=== PATIENT | female | born 1975 | race Caucasian/White ===

== ENCOUNTER → 2016-05-26 | Day surgery (SDC) | payer OTHER ==
[~2016-05-26] VITALS: Ht 162.6 cm; Wt 93.2 kg
[~2016-05-26] MED LIST: AMIT50TA3 PO; CLON0.5T3 PO; CYCL10TA6 PO; DPPI400 IM; HYDR-4330 PO; LIDOCAINE HCL 2% 2 ML VIAL (20MG/ML) ONE; MIDAZOLAM HCL 1 MG/ML 2ML VIAL ONE; OMEP40CA PO; ONDANSETRON INJ 2 MG/ML 2 ML VIAL ONE; PROPOFOL IV EMULSION 10 MG/ML 20 ML VIAL IV ONE; RANI300T2 PO; VALA1TAB PO
[2016-05-26 08:28] VITALS: Ht 162.6 cm; Wt 93.2 kg
--- NOTE | 2016-05-26 08:35 | Endo History and Physical ---
History & Physical Date of Service: May 26, 2016. Chief Complaint: DYSPHAGIA, REFLUX Referring Physician: DR COOPER History of Present Illness 41 yo CF who presents for EGD secondary to GERD and Dysphagia. Past Surgical History Hx Cardiac Surgery: No Hx Internal Defibrillator: No Hx Pacemaker: No Hx Abdominal Surgery: No Hx of Implantable Prosthesis: No Hx Post-Op Nausea and Vomiting: Yes (NO ISSUES WITH PREVIOUS EGD) Hx Cancer Surgery: No Hx Thoracic Surgery: No Hx Orthopedic: Yes (LUMBAR DISCECTOMY, LAMINECTOMY, R/L CTR) Hx Urinary Tract Surgery: No Family History None Social History Smoking Status: Never Smoker Hx Substance Use: No Hx Alcohol Use: Yes (RARE) Allergies Coded Allergies: Acetaminophen (Verified Allergy, Mild, ITCHY, 05/07/16) Codeine (Verified Allergy, Mild, SWELLING OF MOUTH AND ITCHY,, 05/07/16) Hydrocodone (Verified Allergy, Mild, ITCHY, 05/07/16) Current Medications Reported Home Medications Medications Dose Route/Sig Max Daily Dose Days Date Category Dose Instructions Klonopin (Clonazepam) 0.5 Mg Tab 0.5 Mg PO UD PRN 05/07/16 Reported Amitriptyline Hcl 50 Mg Tab 25 Mg PO HS 05/07/16 Reported Flexeril (Cyclobenzaprine Hcl) 10 Mg Tab 10 Mg PO TID PRN 01/01/16 Reported Lortab 5-325 mg (Hydrocodone-Acetaminophen) 1 Tab Tab 1 Tab PO QID PRN 01/01/16 Reported STILL TAKES EVEN THOUGH SHE HAS ADVERSE REACTION - ITCHING Depo-Provera (Medroxyprogesterone Acetate) 400 Mg/Ml Inj 1 Dose IM EVERY 3 MONTHS 01/01/16 Reported Valtrex (Valacyclovir HCl) 1,000 Mg Tab 1,000 Mg PO TID PRN 01/01/16 Reported Prilosec (Omeprazole) 40 Mg Capcr 40 Mg PO QAM 01/01/16 Reported Zantac (Ranitidine HCl) 300 Mg Tab 300 Mg PO HS 01/01/16 Reported Vital Signs Weight (Kilograms): 93.18 Height (Feet): 5 Height (Inches): 4 Date Time Temp Pulse Resp B/P Pulse Ox O2 Delivery O2 Flow Rate FiO2 05/26/16 08:26 36.3 97 18 160/94 92 Room Air Physical Exam General Appearance: WD/WN, no apparent distress Respiratory/Chest: Auscultation: breath sounds normal Cardiovascular: Heart Auscultation: RRR Abdomen: Bowel Sounds: normal Inspection & Palpation: soft, non-distended, no tenderness, guarding & rebound Assessment and Plan Assessment: 41 yo CF who presents for EGD secondary to GERD and Dysphagia. Plan: Proceed with EGD.
--- NOTE | 2016-05-26 09:34 | GI REPORT ---
Procedure Date: 05/26/2016 9:06 AM Procedure: Upper GI endoscopy Indications: Dysphagia, Gastro-esophageal reflux disease Medicines: Monitored Anesthesia Care Complications: No immediate complications. Estimated Blood Loss: Estimated blood loss: none. Procedure: Pre-Anesthesia Assessment: - Prior to the procedure, a History and Physical was performed, and patient medications and allergies were reviewed. The patient's tolerance of previous anesthesia was also reviewed. The risks and benefits of the procedure and the sedation options and risks were discussed with the patient. All questions were answered, and informed consent was obtained. Prior Anticoagulants: The patient has taken no previous anticoagulant or antiplatelet agents. ASA Grade Assessment: II - A patient with mild systemic disease. After reviewing the risks and benefits, the patient was deemed in satisfactory condition to undergo the procedure. After obtaining informed consent, the endoscope was passed under direct vision. Throughout the procedure, the patient's blood pressure, pulse, and oxygen saturations were monitored continuously. The scope was introduced through the mouth, and advanced to the second part of duodenum. The upper GI endoscopy was accomplished without difficulty. The patient tolerated the procedure well. Findings: One mild benign-appearing, intrinsic stenosis was found. This measured 1.5 cm (inner diameter) x less than one cm (in length) and was traversed. A guidewire was placed and the scope was withdrawn. Dilation was performed with a Savary dilator with no resistance at 48 Fr and 51 Fr. A TTS dilator was passed through the scope. Dilation with an 18-19-20 mm balloon (to a maximum balloon size of 20 mm) dilator was performed. The dilation site was examined following endoscope reinsertion and showed no change. A small hiatus hernia was present. The examined duodenum was normal. Impression: - Benign-appearing esophageal stenosis. Dilated. - Small hiatus hernia. - Normal examined duodenum. - No specimens collected. Recommendation: - Resume previous diet. - Continue present medications. - Repeat the upper endoscopy PRN for retreatment. - Return to primary care physician as previously scheduled. Bridger Navarro DO 05/26/2016 9:33:19 AM This report has been signed electronically. Note Initiated On: 05/26/2016 9:06 AM
--- NOTE | 2016-05-26 09:38 | Discharge Instructions ---
Endoscopy Patient Instructions Date / Procedure(s) Performed May 26, 2016. EGD Allergy Information Coded Allergies: Acetaminophen (Verified Allergy, Mild, ITCHY, 05/07/16) Codeine (Verified Allergy, Mild, SWELLING OF MOUTH AND ITCHY,, 05/07/16) Hydrocodone (Verified Allergy, Mild, ITCHY, 05/07/16) Discharge Date / Findings May 26, 2016. Esophageal stricture s/p dilation Hiatal hernia Medication Instructions OK to resume all medications today as prescribed Reported Home Medications Medications Dose Route/Sig Max Daily Dose Days Date Category Dose Instructions Klonopin (Clonazepam) 0.5 Mg Tab 0.5 Mg PO UD PRN 05/07/16 Reported Amitriptyline Hcl 50 Mg Tab 25 Mg PO HS 05/07/16 Reported Flexeril (Cyclobenzaprine Hcl) 10 Mg Tab 10 Mg PO TID PRN 01/01/16 Reported Lortab 5-325 mg (Hydrocodone-Acetaminophen) 1 Tab Tab 1 Tab PO QID PRN 01/01/16 Reported STILL TAKES EVEN THOUGH SHE HAS ADVERSE REACTION - ITCHING Depo-Provera (Medroxyprogesterone Acetate) 400 Mg/Ml Inj 1 Dose IM EVERY 3 MONTHS 01/01/16 Reported Valtrex (Valacyclovir HCl) 1,000 Mg Tab 1,000 Mg PO TID PRN 01/01/16 Reported Prilosec (Omeprazole) 40 Mg Capcr 40 Mg PO QAM 01/01/16 Reported Zantac (Ranitidine HCl) 300 Mg Tab 300 Mg PO HS 01/01/16 Reported Provider Instructions Activity Restrictions - No exercising or heavy lifting for 24 hours. - Do not drink alcohol the day of the procedure. - Do not drive a car or operate machinery until the day after the procedure. - Do not make any important decisions or sign important papers in 24 hours after the procedure. Following Day: - Return to full activity which may include returning to work/school. Diet Start your diet with liquids and light foods (jello, soup, juice, toast). Then eat your usual diet if not nauseated. Treatment For Common After Affects For mild abdominal pain, bloating, or excessive gas: - Rest - Eat lightly - Lie on right side Follow-Up Information Follow-up with DR COOPER as scheduled Anesthesia Information What You Should Know You have had a procedure that required some medicine to reduce anxiety and discomfort. This treatment is called moderate sedation. After receiving the treatment, you may be sleepy, but you will be able to breathe on your own. The effects of the treatment may last for several hours. Follow these instructions along with Activity/Diet recommendations noted above: * Do NOT do anything where dizziness or clumsiness would be dangerous. * Rest quietly at home today, then you can be up and about tomorrow. * Have a responsible person stay with you the rest of today. * You may have had an I.V. today. If so, you may take the dressing off later today. Recommendations Call your doctor if: * Trouble breathing * Continuous vomiting for more than 24 hours * Temperature above 101 degrees * Severe abdominal pain or bloating * Pain not relieved by pain medicine ordered * There is increased drainage or redness from any incision * A large amount of rectal bleeding greater than 2-3 tablespoons. (If you had a polyp/s removed or have hemorrhoids, a small amount of blood - from the rectum is to be expected.) * You have any unanswered questions or concerns. IN THE EVENT OF A SERIOUS EMERGENCY, GO TO THE NEAREST EMERGENCY ROOM Your discharge instructions were prepared by provider Bridger Navarro. Patient Instructions Signature Page Elysia Mckeon Patient (or Guardian) Signature/Date: I have read and understand the instructions given to me by my caregivers. Caregiver/RN/Doctor Signature/Date: The above-named patient and/or guardian has received patient instructions on this date. + Original Patient Signature Page (only) stays with chart. Please make copy for patient.
[2016-05-26 10:21] VITALS: BP 137/81; PULSE 82; O2SAT 97
--- NOTE | 2016-05-26 10:40 | Anesthesiology Progress Note ---
Anesthesia Post Op Note Date & Time May 26, 2016 at 10:39 Vital Signs Pain Intensity: 0 Vital Signs Past 12 Hours Date Time Temp Pulse Resp B/P Pulse Ox O2 Delivery O2 Flow Rate FiO2 05/26/16 10:21 82 18 137/81 97 Room Air 05/26/16 09:53 85 18 141/67 99 Room Air 05/26/16 09:38 95 18 137/67 96 Room Air 05/26/16 09:23 100 18 122/59 98 Room Air 05/26/16 08:26 36.3 97 18 160/94 92 Room Air Notes Mental Status: alert / awake / arousable Nausea / Vomiting: adequately controlled Pain: adequately controlled Airway Patency, RR, SpO2: stable & adequate BP & HR: stable & adequate Hydration State: stable & adequate Anesthetic Complications: no major complications apparent
== END | disposition home or self-care (01) ==
LOC: C.GI 08:04
PROVIDERS: ATTEND Internal Medicine
DX: K21.9 Gastro-esophageal reflux disease without esophagitis (principal); R13.10 Dysphagia, unspecified; K22.2 Esophageal obstruction; Z88.6 Allergy status to analgesic agent; Z88.5 Allergy status to narcotic agent; J45.909 Unspecified asthma, uncomplicated; K44.9 Diaphragmatic hernia without obstruction or gangrene

== ENCOUNTER → 2017-05-14 | Day surgery (SDC) | payer OTHER ==
[2017-05-04 08:39] VITALS: Ht 162.6 cm; Wt 104.5 kg
[~2017-05-14] VITALS: Ht 162.6 cm; Wt 104.5 kg
[~2017-05-14] MED LIST changes: -CLON0.5T3 PO; -HYDR-4330 PO; +HYDR-5688 PO; +KLN/5 PO; -MIDAZOLAM HCL 1 MG/ML 2ML VIAL ONE; +NXM/40 PO; -OMEP40CA PO; -ONDANSETRON INJ 2 MG/ML 2 ML VIAL ONE; +SODIUM CHLORIDE 0.9% 500ML 500 ML IV ONE; -VALA1TAB PO; +VALA1TAB31 PO; +VITAMIN D PO
--- NOTE | 2017-05-14 09:01 | Endo History and Physical ---
History & Physical Date of Service: May 14, 2017. Chief Complaint: esophageal stenosis, vomiting, gerd Referring Physician: Dr. wIona Garcia History of Present Illness 42 yo CF who presents for EGD secondary to esophageal stenosis, vomiting and GERD. Past Surgical History Hx Cardiac Surgery: No Hx Internal Defibrillator: No Hx Pacemaker: No Hx Abdominal Surgery: No Hx Post-Op Nausea and Vomiting: Yes Hx Cancer Surgery: No Hx Thoracic Surgery: No Hx Orthopedic: Yes (LUMBAR DISCECTOMY, LAMINECTOMY, R/L CTR) Hx Urinary Tract Surgery: No Family History None Social History Smoking Status: Never Smoker Hx Substance Use: No Hx Alcohol Use: Yes (RARE) Allergies Coded Allergies: Dextromethorphan (Verified Allergy, Unknown, WITH CODEINE, ITCHING/THROAT CLOSED, 05/04/17) Guaifenesin (Verified Allergy, Unknown, WITH CODEINE, ITCHING/THROAT CLOSED, 05/04/17) Current Medications Reported Home Medications Medications Dose Route/Sig Max Daily Dose Days Date Category Dose Instructions [Vitamin D] 1 Tab PO WK 05/04/17 Reported Valtrex (Valacyclovir Hcl) 1 Gm Tab 1 Gm PO TID PRN 05/04/17 Reported Nexium (Esomeprazole Magnesium) 40 Mg Cap 40 Mg PO QAM 05/04/17 Reported [place] 5MG/325MG (Acetaminophen/Hydrocodone Bitart) Tab 1 Tablet PO Q6H PRN 05/04/17 Reported PRN PAIN Amitriptyline Hcl 50 Mg Tab 50 Mg PO HS 05/04/17 Reported Klonopin (Clonazepam) 0.5 Mg Tab 0.5 Mg PO UD PRN 05/07/16 Reported Flexeril (Cyclobenzaprine Hcl) 10 Mg Tab 10 Mg PO TID PRN 01/01/16 Reported Depo-Provera (Medroxyprogesterone Acetate) 400 Mg/Ml Inj 1 Dose IM EVERY 3 MONTHS 01/01/16 Reported Zantac (Ranitidine HCl) 300 Mg Tab 300 Mg PO HS 01/01/16 Reported Vital Signs Weight (Kilograms): 104.55 Height (Feet): 5 Height (Inches): 4 Date Time Temp Pulse Resp B/P (MAP) Pulse Ox O2 Delivery O2 Flow Rate FiO2 05/14/17 08:37 36.7 93 22 138/94 (109) 98 Room Air Physical Exam General Appearance: WD/WN, no apparent distress Respiratory/Chest: Auscultation: breath sounds normal Cardiovascular: Heart Auscultation: RRR Abdomen: Bowel Sounds: normal Inspection & Palpation: soft, non-distended, no tenderness, guarding & rebound Assessment and Plan Assessment: 42 yo CF who presents for EGD secondary to esophageal stenosis, vomiting and GERD. Plan: Proceed with EGD.
--- NOTE | 2017-05-14 09:31 | GI REPORT ---
Procedure Date: 05/14/2017 9:05 AM Procedure: Upper GI endoscopy Indications: Gastro-esophageal reflux disease, For therapy of esophageal stenosis Medicines: Monitored Anesthesia Care Complications: No immediate complications. Estimated Blood Loss: Estimated blood loss: none. Procedure: Pre-Anesthesia Assessment: - Prior to the procedure, a History and Physical was performed, and patient medications and allergies were reviewed. The patient's tolerance of previous anesthesia was also reviewed. The risks and benefits of the procedure and the sedation options and risks were discussed with the patient. All questions were answered, and informed consent was obtained. Prior Anticoagulants: The patient has taken no previous anticoagulant or antiplatelet agents. ASA Grade Assessment: II - A patient with mild systemic disease. After reviewing the risks and benefits, the patient was deemed in satisfactory condition to undergo the procedure. After obtaining informed consent, the endoscope was passed under direct vision. Throughout the procedure, the patient's blood pressure, pulse, and oxygen saturations were monitored continuously. The scope was introduced through the mouth, and advanced to the second part of duodenum. The upper GI endoscopy was accomplished without difficulty. The patient tolerated the procedure well. Findings: One mild benign-appearing, intrinsic stenosis was found. This measured less than one cm (in length) and was traversed. A TTS dilator was passed through the scope. Dilation with an 18-19-20 mm balloon (to a maximum balloon size of 20 mm) dilator was performed. The dilation site was examined and showed no change. Estimated blood loss was minimal. A medium-sized hiatus hernia was present. The examined duodenum was normal. Impression: - Benign-appearing esophageal stenosis. Dilated. - Medium-sized hiatus hernia. - Normal examined duodenum. - No specimens collected. Recommendation: - Resume previous diet. - Continue present medications. - Return to primary care physician as previously scheduled. Bridger Navarro, DO 05/14/2017 9:30:21 AM This report has been signed electronically. Note Initiated On: 05/14/2017 9:05 AM I attest to the content of the Intraoperative Record and orders documented therein, exceptions below
--- NOTE | 2017-05-14 09:59 | Anesthesiology Progress Note ---
Anesthesia Post Op Note Date & Time May 14, 2017 at 09:59 Vital Signs Pain Intensity: 0 Vital Signs Past 12 Hours Date Time Temp Pulse Resp B/P (MAP) Pulse Ox O2 Delivery O2 Flow Rate FiO2 05/14/17 09:45 90 20 122/70 (87) 99 Room Air 05/14/17 09:30 98 20 112/59 (76) 98 Room Air 05/14/17 08:37 36.7 93 22 138/94 (109) 98 Room Air Notes Mental Status: alert / awake / arousable, participated in evaluation Pt Amnestic to Procedure: Yes Nausea / Vomiting: adequately controlled Pain: adequately controlled Airway Patency, RR, SpO2: stable & adequate BP & HR: stable & adequate Hydration State: stable & adequate Anesthetic Complications: no major complications apparent
[2017-05-14 10:00] VITALS: BP 128/72; PULSE 98; O2SAT 99
--- NOTE | 2017-05-14 10:18 | Discharge Instructions ---
Endoscopy Patient Instructions Date / Procedure(s) Performed May 14, 2017. EGD Allergy Information Coded Allergies: Dextromethorphan (Verified Allergy, Unknown, WITH CODEINE, ITCHING/THROAT CLOSED, 05/14/17) Guaifenesin (Verified Allergy, Unknown, WITH CODEINE, ITCHING/THROAT CLOSED, 05/14/17) Discharge Date / Findings May 14, 2017. Hiatal hernia Esophageal stenosis s/p dilation to 20mm Medication Instructions OK to resume all medications today as prescribed Reported Home Medications Medications Dose Route/Sig Max Daily Dose Days Date Category Dose Instructions [Vitamin D] 1 Tab PO WK 05/04/17 Reported Valtrex (Valacyclovir Hcl) 1 Gm Tab 1 Gm PO TID PRN 05/04/17 Reported Nexium (Esomeprazole Magnesium) 40 Mg Cap 40 Mg PO QAM 05/04/17 Reported [place] 5MG/325MG (Acetaminophen/Hydrocodone Bitart) Tab 1 Tablet PO Q6H PRN 05/04/17 Reported PRN PAIN Amitriptyline Hcl 50 Mg Tab 50 Mg PO HS 05/04/17 Reported Klonopin (Clonazepam) 0.5 Mg Tab 0.5 Mg PO UD PRN 05/07/16 Reported Flexeril (Cyclobenzaprine Hcl) 10 Mg Tab 10 Mg PO TID PRN 01/01/16 Reported Depo-Provera (Medroxyprogesterone Acetate) 400 Mg/Ml Inj 1 Dose IM EVERY 3 MONTHS 01/01/16 Reported Zantac (Ranitidine HCl) 300 Mg Tab 300 Mg PO HS 01/01/16 Reported Provider Instructions Activity Restrictions - No exercising or heavy lifting for 24 hours. - Do not drink alcohol the day of the procedure. - Do not drive a car or operate machinery until the day after the procedure. - Do not make any important decisions or sign important papers in 24 hours after the procedure. Following Day: - Return to full activity which may include returning to work/school. Diet Start your diet with liquids and light foods (jello, soup, juice, toast). Then eat your usual diet if not nauseated. Treatment For Common After Affects For mild abdominal pain, bloating, or excessive gas: - Rest - Eat lightly - Lie on right side Follow-Up Information Follow-up with Dr. Iwona Garcia as scheduled Anesthesia Information What You Should Know You have had a procedure that required some medicine to reduce anxiety and discomfort. This treatment is called moderate sedation. After receiving the treatment, you may be sleepy, but you will be able to breathe on your own. The effects of the treatment may last for several hours. Follow these instructions along with Activity/Diet recommendations noted above: * Do NOT do anything where dizziness or clumsiness would be dangerous. * Rest quietly at home today, then you can be up and about tomorrow. * Have a responsible person stay with you the rest of today. * You may have had an I.V. today. If so, you may take the dressing off later today. Recommendations Call your doctor if: * Trouble breathing * Continuous vomiting for more than 24 hours * Temperature above 101 degrees * Severe abdominal pain or bloating * Pain not relieved by pain medicine ordered * There is increased drainage or redness from any incision * A large amount of rectal bleeding greater than 2-3 tablespoons. (If you had a polyp/s removed or have hemorrhoids, a small amount of blood - from the rectum is to be expected.) * You have any unanswered questions or concerns. IN THE EVENT OF A SERIOUS EMERGENCY, GO TO THE NEAREST EMERGENCY ROOM Your discharge instructions were prepared by provider Bridger Naavrro. Patient Instructions Signature Page Elysia Mckeon Patient (or Guardian) Signature/Date: I have read and understand the instructions given to me by my caregivers. Caregiver/RN/Doctor Signature/Date: The above-named patient and/or guardian has received patient instructions on this date. + Original Patient Signature Page (only) stays with chart. Please make copy for patient.
== END | disposition home or self-care (01) ==
LOC: C.GI 08:17
PROVIDERS: ATTEND Internal Medicine
DX: K22.2 Esophageal obstruction (principal); R11.10 Vomiting, unspecified; K21.9 Gastro-esophageal reflux disease without esophagitis; K44.9 Diaphragmatic hernia without obstruction or gangrene; Z79.899 Other long term (current) drug therapy

== ENCOUNTER 2018-06-22 08:20 | Observation (INO) ==
--- NOTE | 2018-06-17 10:06 | Anesthesiology Consultation ---
Date of Service June 17, 2018 Assessment & Plan (1) Encounter for pre-operative examination: Plan: CHECK TEST AM DOS Chart Review Chart Review: Acceptable Risk for Surgery Consults Requested none ASA ASA2 Proposed Anesthesia Anesthesia Type: General Risk / Benefits Reviewed With: PT / POA / Parent / Guardian, Accepts Plan and Informed Consent Obtained NPO Date Last Intake of Fluids: 06/22/18 Time Last Intake of Fluids: 00:00 Date Last Intake of Solids: 06/22/18 Time Last Intake of Solids: 00:00 History Surgery Operation Date: 06/22/18 10:30 Proposed Procedures p Robotic Laparoscopic Kael Fundoplication - Jai Denis MD, FACS s with Esophagogastroduodenoscopy - Jai Denis MD, FACS Height/Weight Height: 5 ft 4 in Weight: 87.18 kg Allergies Allergy/AdvReac Type Severity Reaction Status Date / Time codeine Allergy Unknown itching Verified 06/22/18 09:17 and mouth swells Medications Home Medications Medication Instructions Recorded Confirmed Last Taken ergocalciferol (vitamin D2) 50,000 unit PO WK PRN 05/06/18 06/22/18 1 Year Ago [Vitamin D2] ~06/08/17 esomeprazole magnesium 40 mg PO QAM 05/06/18 06/22/18 06/21/18 08:00 hydrocodone-acetaminophen 2 tab PO Q6H PRN 05/06/18 06/22/18 06/08/18 08:00 medroxyprogesterone [Depo-Provera] 1 dose IM DIRECTED 05/06/18 06/22/1806/09 08:00 valacyclovir [Valtrex] 1,000 mg PO BID PRN 05/06/18 06/22/18 2 Months Ago ~04/08/18 Active Medications Generic Name Dose Route Start Last Admin Trade Name Freq PRN Reason Stop Dose Admin Lactated Ringer's 1,000 mls @ 15 mls/hr 06/22/18 06:00 06/22/18 09:41 Lr IV 06/23/18 05:59 15 mls/hr .Q24H OFE Administration Past Medical History Medical History Asthma EXERCISE INDUCED-NO INHALERS Cardiac murmur AT GERD (gastroesophageal reflux disease) Gastroparesis Hiatal hernia Kidney disease "FUNCTIONING AT 53%" PER PT PER PCP Nausea and vomiting after administration of anesthetic agent Obesity Past Surgical History Surgical History History of back surgery 2013-LAIMECTOMY/DISECTOMY History of carpal tunnel release of both wrists History of esophagogastroduodenoscopy (EGD) x3 with dilation Hx of wisdom tooth extraction Past Anesthesia History No Hx of Anesthesia Complications and No Family Hx of Anesthesia Complications History of PONV Yes Motion Sickness Screening History of Motion Sickness: No Social History Smoking Status: Never smoker Do You Dip or Chew Tobacco: No Hx Alcohol Use: Yes (RARELY) Alcohol type: hard liquor Hx Substance Use: No Exercise / Class Metabolic Activity II 4-5 Yardwork/Stairs/Walk up hill Physical Exam Vital Signs Last Vital Signs Temp 98.6 F 06/22/18 09:26 Pulse 67 06/22/18 09:26 Resp 20 06/22/18 09:26 BP 129/77 06/22/18 09:26 Pulse Ox 97 06/22/18 09:26 ENMT Mouth: no dentition abnormality Thyromental Distance: > or= 3.5 Finger Breadths Mallampati Class: II Neck normal visual inspection Respiratory normal respiratory effort Auscultation: lungs clear to auscultation bilaterally Cardiovascular Rate/Rhythm: regular rate and regular rhythm Testing Laboratory Results Laboratory Tests 06/17/18 06/17/18 09:58 09:58 WBC 6.72 Hgb 14.1 Hct 41.8 Plt Count 264 Sodium 139 Potassium 3.8 Chloride 106 Carbon Dioxide 24 BUN 13 Creatinine 1.03 Glucose 88
[~2018-06-22 08:20] MED LIST changes: -AMIT50TA3 PO; -CYCL10TA6 PO; -DPPI400 IM; -HYDR-5688 PO; -KLN/5 PO; -LIDOCAINE HCL 2% 2 ML VIAL (20MG/ML) ONE; +LR 15ML/HR IV SCH; -NXM/40 PO; -PROPOFOL IV EMULSION 10 MG/ML 20 ML VIAL IV ONE; -RANI300T2 PO; -SODIUM CHLORIDE 0.9% 500ML 500 ML IV ONE; -VALA1TAB31 PO; -VITAMIN D PO
[2018-06-22] MEDS ORDERED: CEFAZOLIN 2000MG 2,000 MG/15 ML SYR IV SCH (09:15)
--- NOTE | 2018-06-22 09:28 | History & Physical Bridge Note ---
Date of Service June 22, 2018 History & Physical Bridge Note I have examined the patient, reviewed the History & Physical and in the interval since the performance of the History & Physical I have noted the following changes of clinical significance: no changes noted
[2018-06-22] MEDS ORDERED: SCOPOLAMINE 1.5 MG TDSY TD ONE ×2 (09:49→09:51)
[2018-06-22] MEDS ORDERED: ATROPINE SULFATE 0.1 MG/ML 10ML SYR IV PRN (09:51)
[2018-06-22] MEDS ORDERED: ePHEDrine sulfate 50 MG/ML AMP IV PRN (09:51)
[2018-06-22] MEDS ORDERED: ONDANSETRON INJ 2 MG/ML 2 ML VIAL IV PRN (09:51)
[2018-06-22] MEDS ORDERED: SCOPOLAMINE 1.5 MG TDSY ONE (09:56)
[2018-06-22] MEDS ORDERED: CEFAZOLIN 2,000 MG/15 ML IV PUSH IV ONE (09:56)
[2018-06-22] MEDS ORDERED: SODIUM CHLORIDE 0.9% PF 50 ML VIAL ONE (10:25)
[2018-06-22] MEDS ORDERED: BUPIVACAINE LIPOSOME 1.3% 266 MG/20 ML VIAL ONE (10:25)
[2018-06-22] MEDS ORDERED: BUPIVACAINE 0.5 % 5 MG/1 ML MPF 30ML VIAL ONE (10:25)
[2018-06-22] MEDS ORDERED: DEXAMETHASONE SOD INJ 4 MG/ML VIAL ONE (10:51)
[2018-06-22] MEDS ORDERED: PHENYLEPHRINE HCL 10 MG/ML VIAL ONE (10:51)
[2018-06-22] MEDS ORDERED: ePHEDrine sulfate 50 MG/ML AMP ONE (10:51)
[2018-06-22] MEDS ORDERED: SUCCINYLCHOLINE CHLORIDE 20 MG/ML 10 ML VIAL ONE (10:51)
[2018-06-22] MEDS ORDERED: NEOSTIGMINE METHYLSULFATE 5 MG/5 ML SYR ONE (10:52)
[2018-06-22] MEDS ORDERED: PROPOFOL IV EMULSION 10 MG/ML 20 ML VIAL IV ONE (10:52)
[2018-06-22] MEDS ORDERED: ONDANSETRON INJ 2 MG/ML 2 ML VIAL ONE (10:52)
[2018-06-22] MEDS ORDERED: LIDOCAINE HCL 2% 2 ML VIAL/AMP(20MG/ML) INFIL ONE (10:52)
[2018-06-22] MEDS ORDERED: fentaNYL citrate 100 MCG/2 ML VIAL ONE ×2 (10:52→14:59)
[2018-06-22] MEDS ORDERED: GLYCOPYRROLATE 0.2 MG/ML VIAL ONE (10:52)
[2018-06-22] MEDS ORDERED: MIDAZOLAM HCL 1 MG/ML 2ML VIAL ONE (10:52)
[2018-06-22] MEDS ORDERED: ROCURONIUM BROMIDE 10 MG/ML 5 ML VIAL ONE ×3 (12:08→13:35)
[2018-06-22] MEDS ORDERED: METOCLOPRAMIDE HCL INJ 5 MG/ML 2 ML VIAL ONE (12:08)
[2018-06-22] MEDS ORDERED: raNITIdine HCl 25 MG/ML VIAL ONE (12:08)
[2018-06-22] MEDS ORDERED: HYDROmorphone INJ 2 MG/ML SYR/VIAL ONE (12:32)
--- NOTE | 2018-06-22 13:38 | Post Operative Brief Note ---
Immediate Post Op Note v1 Date of Surgery June 22, 2018 Pre & Post Diagnosis Operation Date: 06/22/18 10:30 Pre-Op Diagnosis: Medically Intractable Gastroesophageal Reflux Disease Post-Op Diagnosis: Medically Intractable Gastroesophageal Reflux Disease Procedure Operation Date: 06/22/18 10:30 Actual Procedures p Robotic Laparoscopic Kael Fundoplication, Esophagogastroduodenoscopy - Jai Denis MD, FACS Surgeon Jai Denis MD, FACS [employer] Hayley MANLEY Estimated Blood Loss 10 Findings Consistent with Post-Op Diagnosis Drains Saldana Catheter (saldana placed by Mica Salazar without any difficulty. Clear yellow urine noted. )
[2018-06-22] MEDS ORDERED: METOCLOPRAMIDE HCL INJ 5 MG/ML 2 ML VIAL IV ONE (14:05)
--- NOTE | 2018-06-22 14:23 | XRay Report ---
XR chest 1V portable HISTORY: s/p Kael COMPARISON: None. FINDINGS: There is pneumomediastinum as well as subcutaneous emphysema within the upper chest/neck ba se. No definite pneumothorax. No pleural effusions. The heart is normal in size. Patchy left basilar density. The right lung is clear. IMPRESSION: 1. Pneumomediastinum with subcutaneous emphysema at the upper chest/neck base. This likely correspond s the patient's recent postoperative history. 2. Patchy density within the left lung base. This could also be due to postoperative change or a deve loping pneumonia. Follow-up recommended. Electronically signed by: Earle Raymond M.D. 06/22/2018 2:22 PM
[2018-06-22] MEDS: fentaNYL citrate 100 MCG/2 ML VIAL IV PRN ×2 (14:26→14:38)
--- NOTE | 2018-06-22 15:26 | Anesthesiology Progress Note ---
Date of Service June 22, 2018 The patient states that she is feeling some tightness in her chest but is not having trouble breathing. Her lungs are clear. Her sats throughout her PACU stay have been between 98 and 100 on 2 liters nasal cannula. She has some mild crepitus over her right clavicular area. Dr Denis is aware of these things and is not concerned. Anesthesia Post Procedure Vital Signs Vital Signs: Temp Pulse Pulse Resp BP Pulse Ox 06/22/18 15:15 36.0 C L 74 18 114/74 97 06/22/18 15:05 75 18 118/74 98 06/22/18 14:55 73 18 94/73 L 95 06/22/18 14:45 73 12 121/73 96 06/22/18 14:35 78 12 133/69 96 06/22/18 14:25 94 H 18 135/97 100 06/22/18 14:15 102 H 12 118/94 99 06/22/18 14:08 36.4 C L 108 H 20 142/95 H 96 06/22/18 09:26 37 C 67 20 129/77 97 Pain Intensity Abdomen: Pain Intensity: 4 Notes Mental Status: alert / awake / arousable Patient Amnestic to Procedure: Yes Nausea / Vomiting: adequately controlled Pain: adequately controlled Airway Patency, RR, SpO2: stable & adequate BP & HR: stable & adequate Hydration State: stable & adequate Anesthetic Complications: no major complications apparent and Pt Satisfied with anesthetic care
[2018-06-22] MEDS ORDERED: CHECK SCOPOLAMINE PATCH PLACEMENT SCH (16:00)
[2018-06-22] MEDS ORDERED: MEDROXYPROGESTERONE ACETATE 150 MG/ML VIAL IM SCH (16:19)
[2018-06-22] MEDS ORDERED: D5W AND 1/2NSS 1,000 ML IV SCH (16:19)
[2018-06-22] MEDS: HYDROmorphone INJ 0.5 MG/0.5 ML SYR IV PRN ×2 (16:33→20:35)
[2018-06-22] MEDS: CHECK SCOPOLAMINE PATCH PLACEMENT SCH ×2 (16:33→23:20)
[2018-06-22] MEDS: ACETAMINOPHEN 1,000 MG/100 ML VIAL IV SCH (17:59)
[2018-06-22] MEDS: ONDANSETRON INJ 2 MG/ML 2 ML VIAL IV SCH ×2 (18:02→23:20)
--- NOTE | 2018-06-22 18:05 | Operative Report ---
DATE OF OPERATION: 06/22/2018 PREOPERATIVE DIAGNOSIS: Intractable gastroesophageal reflux with hiatal hernia. POSTOPERATIVE DIAGNOSIS: Intractable gastroesophageal reflux with hiatal hernia. PROCEDURE PERFORMED: 1. Robotic-assisted laparoscopic repair of hiatal hernia. 2. Kael fundoplication. SURGEON: Jai Denis MD PROGRAM AIDE: VINEET Gorman (Mr. Amaro was present for the entire case, was at the patient's bedside while I was at the console, and closed skin incisions at the conclusion.) ANESTHESIA:. General anesthesia with endotracheal intubation. INDICATION FOR PROCEDURE AND FINDINGS: This is a very nice 43-year-old female who has had gastroesophageal reflux for many years, which is not as responsive to medications that she would like. She is taking H2 blockers and proton pump inhibitors. She presented to the office requesting surgical address for this problem. The patient also has some esophagitis. We decided to proceed with surgery. On 06/22/2018, the patient underwent an uncomplicated robot-assisted laparoscopic repair of her hernia and a Kael fundoplication. This is a floppy Kael with 3 sutures. She certainly tolerated it well. We had no blood loss and was extubated in the room. I also did an esophagoscopy at the conclusion of the case and the wrap looked quite good. DESCRIPTION OF PROCEDURE: The patient brought to the operating room and laid in supine position. General anesthesia induced. Endotracheal intubation performed with single lumen tube. After prepped and draped in usual sterile fashion, a 5-mm scope was placed about a few centimeters above the umbilicus. It can be seen that we were in the abdominal cavity. Carbon dioxide was then insufflated through the 5-mm port. After we had insufflated CO2, we then put an 8-mm port in the mid clavicular line just below the costal margin bilaterally. We also placed a 5-mm scope was much more lateral bilaterally. I then put a 12-mm scope which is an state tested nursing assistant's port in the left paraumbilical area. We switched the 5-mm scope out for a camera scope. We then docked the camera and all the instruments. I used the pretzel liver retractor from the left 5-mm port and helped this gave us excellent exposure. A bit surprised at how large the defect was. I had excellent exposure and we had no adhesions. I immediately started taking down the short gastrics with the vessel sealer and this came out very nicely. I then used a cautery to remove adhesions from the right diaphragmatic hiatus and then went down to the crura posteriorly. Attention was then turned towards the right side and took down the pars flaccida and came down to the right crura. I then connected these and this space was easy to obtain posteriorly. A 1-inch Sedrick drain was placed and we used for retraction. I freed up some of the esophagus. I identified the anterior and posterior vagus nerves and care was taken to avoid injury to them. We really got into no bleeding. She had plenty of intraabdominal esophagus. I then used 2 separate 0 silk sutures in [id number] fashion to reapproximate the posterior crura. I then placed a piece of OviTex absorbable mesh over this but kept it away from the esophagus. This was sutured in place with 2-0 Vicryl suture. I then marked 2 areas posterior and anterior on the fundus and then pulled the posterior part in the retroesophageal fashion and did a shoeshine maneuver to make sure there was no redundancy. A 2-0 silk suture was used to suture the anterior fundus to the esophagus to the posterior fundus and then tied this. I placed 1 more suture above this. I then placed a single suture to hold the fundus with the diaphragmatic crura on the left. This sat without tension and looked quite good. It should be noted that I did take off the gastroesophageal fat pad and delivered this off the field. There really was not a sac per se after freeing everything up. The patient was then undocked. I then did an upper endoscopy and did get through the GE junction without difficulty. In retroflexion and looked like the fundoplication looked quite good. I saw no other abnormalities except she did have some evidence of mild esophagitis. We suctioned out the CO2 and then removed the scope. We also checked for any bubbling. We did not see any to indicate a perforation. We did this with a laparoscope. We then removed all the ports history and used a #1 Maxon to close the 15 mm and 12 mm port sites which was the state tested nursing assistant camera port. A 4-0 Monocryl was used in running subcuticular fashion to approximate the rest of the wound edges. She tolerated it very well, was extubated in the room. I attest to the content of the Intraoperative Record and any orders documented therein. Any exception s are noted below.
[2018-06-22] MEDS: METOCLOPRAMIDE HCL INJ 5 MG/ML 2 ML VIAL IV SCH (20:35)
[2018-06-22] MEDS: DOCUSATE SODIUM 100 MG CAP PO SCH (20:37)
[2018-06-23] MEDS: HYDROmorphone INJ 0.5 MG/0.5 ML SYR IV PRN ×3 (01:05→09:28)
[2018-06-23] MEDS: ACETAMINOPHEN 1,000 MG/100 ML VIAL IV SCH ×2 (01:05→11:02)
[2018-06-23 01:48] VITALS: TEMP 98.2
[2018-06-23] MEDS: METOCLOPRAMIDE HCL INJ 5 MG/ML 2 ML VIAL IV SCH (04:25)
[2018-06-23] MEDS: ONDANSETRON INJ 2 MG/ML 2 ML VIAL IV SCH (05:25)
[2018-06-23 05:42] LABS: INR 1.2 (0.9-1.1); Partial Thromboplastin Time 27.2 Seconds (21.0-31.0)
--- NOTE | 2018-06-23 07:32 | XRay Report ---
XR chest 1V portable HISTORY: s/p fundoplication COMPARISON: Chest one 3019. FINDINGS: Near complete resolution of the pneumomediastinum and upper chest/neck subcutaneous emphyse ma. Question of a trace right pleural/extrapleural gas in the right lung apex. Patchy densities at th e left lung base persist. No new focal lung consolidations. No pleural effusions. The heart is normal in size. IMPRESSION: Near complete resolution of the pneumomediastinum and subcutaneous emphysema. There may be a trace am ount of right pleural/extrapleural gas remaining. Electronically signed by: Earle Raymond M.D. 06/23/2018 7:30 AM
[2018-06-23 07:50] VITALS: BP 110/67; PULSE 72; O2SAT 95
--- NOTE | 2018-06-23 08:08 | Fluoroscopy Report ---
FL barium swallow CLINICAL HISTORY: s/p nissenpostoperative evaluation COMPARISON STUDY: None FLUOROSCOPY TIME: 1 minute NUMBER OF FLUOROSCOPIC IMAGES: 9 FINDINGS: Patient initiated swallowing function well. The esophagus is normal in course and caliber. Stomach is post Niesen fundoplication. There is no significant reflux. There is no evidence for contr ast extravasation. Descending aspect of the duodenal sweep does not distend well. IMPRESSION: No evidence for extravasation or obstruction. Operative changes consistent with Kael fu ndoplication. Narrowing of the second portion of the duodenal sweep possibly a postoperative basis. The above report was generated using voice recognition software. It may contain grammatical, syntax or spelling errors. Electronically signed by: Aristeo Garcia M.D. 06/23/2018 8:06 AM
[2018-06-23] MEDS ORDERED: ENOXAPARIN INJ 40 MG/0.4 ML SYR SQ SCH (09:00)
[2018-06-23] MEDS ORDERED: PANTOprazole 40 MG TAB PO SCH (09:00)
[2018-06-23] MEDS: CHECK SCOPOLAMINE PATCH PLACEMENT SCH (09:29)
[2018-06-23] MEDS: DOCUSATE SODIUM 100 MG CAP PO SCH (09:35)
--- NOTE | 2018-06-23 09:41 | Anesthesiology Progress Note ---
Date of Service June 23, 2018 Anesthesia Post Procedure Vital Signs Vital Signs: Temp Pulse Pulse Resp BP Pulse Ox 06/23/18 09:39 36.8 C 75 72 18 110/67 95 06/23/18 07:08 36.8 C 72 18 110/67 95 06/23/18 04:34 36.8 C 61 14 113/71 96 06/23/18 01:47 36.8 C 64 14 104/67 96 06/22/18 23:41 36.7 C 64 14 108/71 94 06/22/18 21:46 36.7 C 75 16 108/68 96 06/22/18 19:50 36.7 C 80 16 120/77 95 06/22/18 18:43 36.7 C 94 H 18 124/78 97 06/22/18 17:53 36.5 C 74 16 117/76 96 06/22/18 16:42 36.2 C L 75 16 119/73 96 06/22/18 16:19 84 17 112/75 98 06/22/18 15:45 36.7 C 83 18 116/76 96 06/22/18 15:25 79 19 112/65 97 06/22/18 15:15 36.0 C L 74 18 114/74 97 06/22/18 15:05 75 18 118/74 98 06/22/18 14:55 73 18 94/73 L 95 06/22/18 14:45 73 12 121/73 96 06/22/18 14:35 78 12 133/69 96 06/22/18 14:25 94 H 18 135/97 100 06/22/18 14:15 102 H 12 118/94 99 06/22/18 14:08 36.4 C L 108 H 20 142/95 H 96 Pain Intensity Abdomen: Pain Intensity: 2 Notes Mental Status: alert / awake / arousable and participated in evaluation Patient Amnestic to Procedure: Yes Nausea / Vomiting: see Notes below Pain: adequately controlled Airway Patency, RR, SpO2: stable & adequate BP & HR: stable & adequate Hydration State: stable & adequate Anesthetic Complications: no major complications apparent and Pt Satisfied with anesthetic care
--- NOTE | 2018-06-23 12:22 | Discharge Summary ---
DISCHARGE DIAGNOSIS: Gastroesophageal reflux disease with hiatal hernia. HOSPITAL COURSE: This is a very nice 43-year-old female who had gastroesophageal reflux disease with a hiatal hernia which was recalcitrant to medical management. After a long talk in the office, she was quite eager to have a surgical procedure to alleviate her reflux. On 06/22/2018, the patient underwent an uncomplicated robot-assisted laparoscopic repair of her hiatal hernia and we also did a Kael fundoplication. This was a floppy Kael. She did very well. An on-table esophagoscopy showed no evidence of a perforation and the wrap looked very good on retroflexion. She was extubated in the room. We had negligible blood loss. She did quite well and was watched on the floor. She complained of some subxiphoid pain, it was pleuritic in nature, but she was ambulating in the hallway and tolerating liquids without difficulty. A barium swallow the following morning showed no evidence of extravasation. The wrap looked quite good. There was a question of the duodenal sweep. This did get through to her small bowel, however, and she really did not have symptoms. I think this was more a technical problem. I do not think she has evidence of gastric outlet obstruction. It should be noted that we did identify both vagus nerves and care was taken to avoid injury to either. The patient felt quite well actually and I discharged her home the following day. I will see her back in about 10 days. We gave her strict instructions on her diet. We also gave her instructions on her wound care. I am quite pleased with her.
== END 2018-06-23 11:37 | disposition home or self-care (01) ==
LOC: 3N 08:20 → ASU 08:20
DX: K44.9 Diaphragmatic hernia without obstruction or gangrene; J45.909 Unspecified asthma, uncomplicated; E66.9 Obesity, unspecified; Z88.5 Allergy status to narcotic agent; K21.0 Gastro-esophageal reflux disease with esophagitis; Z68.33 Body mass index [BMI] 33.0-33.9, adult